=== PATIENT | female | born 1990 | race Caucasian/White ===

== ENCOUNTER 2021-04-11 13:28 | Emergency (ER) | payer OTHER, SELFPAY ==
--- NOTE | ~2021-04-11 | XR_ITS ---
EXAMINATION: XR CHEST CLINICAL INFORMATION: Cough with positive COMPARISON: None TECHNIQUE: Frontal view of the chest was obtained. FINDINGS: There is a region of airspace disease seen within the left lower lung. No pneumothorax or significant pleural effusion appreciated. Heart normal size. No evidence of pulmonary edema. XR/XR chest 1V IMPRESSION: Left lower lung disease.
[2021-04-11 13:55] VITALS: BP 97/72; PULSE 130; RESP 20; TEMP 37.5; O2SAT 97; BMI 24.7
[2021-04-11 14:00] VITALS: PULSE 112
--- NOTE | 2021-04-11 14:38 | ED.GENADULT ---
HPI - General Adult General Chief complaint: Dyspnea Stated complaint: pt tested positive for covid, difficulty breathing Time Seen by Provider: 04/11/21 14:29 Related Data Allergies Allergy/AdvReac Type Severity Reaction Status Date / Time ibuprofen [From ADVIL] Allergy Unknown SWELLING Verified 04/11/21 13:55 OF EYES PMFSH Social History Social History Advance Directives: Yes Advance Directives Information Provided: Yes Advance Directives on File: No Patient : No Physical Exam Vital Signs: Vital Signs: Last Vital Signs Temp 99.5 F 04/11/21 13:55 Pulse 112 H 04/11/21 14:00 Resp 20 04/11/21 13:55 BP 97/72 04/11/21 13:55 Pulse Ox 97 04/11/21 13:55 Body Mass Index 24.7 Course Course Course Narrative: Patient tested positive fof covid 19 presents to the ED for worsening cough and bodyaches. patient denies any pleuretic chest pain. Patient will order chest xray. Patient is not hypoxic. Patient tachcyardia improved from 130 to 112. patient has low grade fever of 99.5 Discharge Plan Discharge Clinical Impression: COVID-19 Patient Disposition: Home, Self-Care Instructions: COVID-19 (Coronavirus Disease 2019) (ED) Additional Instructions: Strict home quarantine until all symptoms has resolved. Onset of symptoms greater than 7 days. No fever for at least 2 days. Referrals: Physician,Unknown [Primary Care Provider] - 2 days Interventions: ED Discharge Assessment Last Done: 04/11/21 15:57 Discharge Date/Time: 04/11/21 15:58
--- NOTE | 2021-04-11 15:24 | ED.SOB ---
HPI - SOB/Dyspnea General Chief Complaint: Dyspnea Stated Complaint: pt tested positive for covid, difficulty breathing Time Seen by Provider: 04/11/21 14:29 History of Present Illness HPI Narrative: Patient is a 30-year-old female presents today with having coughing upper respiratory symptoms that is been ongoing for last 4 days. Positive generalized malaise weakness coughing. Cough nonproductive in nature. Patient's also have similar symptoms. 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 No nausea no vomiting. No change in smell or taste. Related Data Allergies Allergy/AdvReac Type Severity Reaction Status Date / Time ibuprofen [From ADVIL] Allergy Unknown SWELLING Verified 04/11/21 13:55 OF EYES Review of Systems Review of Systems: Positive coughing positive upper respiratory symptoms positive generalized malaise positive diffuse body ache Yes all other systems are reviewed and are negative FOR[facility]LY [facility] Past Medical History Attestation statement: The following information was validated with the patient. Social History Social History Advance Directives: Yes Advance Directives Information Provided: Yes Advance Directives on File: No Patient : No Physical Exam Vital Signs: Vital Signs: Last Vital Signs Temp 99.5 F 04/11/21 13:55 Pulse 112 H 04/11/21 14:00 Resp 20 04/11/21 13:55 BP 97/72 04/11/21 13:55 Pulse Ox 97 04/11/21 13:55 Body Mass Index 24.7 Appearance: Alert. Oriented X3. No acute distress. Eyes: Pupils equal, round and reactive to light. ENT: Pharynx normal. Neck: Normal inspection. Neck supple. No lymph nodes noted. No crepitus CVS: Normal heart rate and rhythm. Pulses normal. Normal S1 and S2 Respiratory: No respiratory distress. Breath sounds normal. No Wheezing. No rales Abdomen: Soft and nontender. No rigidity. No distention. good BS x4 Skin: Skin warm and dry. Normal skin color. Normal skin turgor. Extremities: No lower extremity edema. Neurovascular intact to all extremities. No Lacerations. No Rash Neuro: Oriented X 3. No motor deficit. No sensory deficit. Moving all extermities. No slurred speech MDM - SOB/Dyspnea MDM Narrative Medical decision making narrative: Tested positive for coronavirus. Positive coughing upper respiratory symptoms. O2 sats 98% on room air. X-ray positive for infiltrate consistent with having COVID. Will discharge patient home conservative management. Patient is 22 years old no history of diabetes for morning. In stable condition to Discharge Plan Discharge Clinical Impression: COVID-19 Patient Disposition: Home, Self-Care Instructions: COVID-19 (Coronavirus Disease 2019) (ED) Additional Instructions: Strict home quarantine until all symptoms has resolved. Onset of symptoms greater than 7 days. No fever for at least 2 days. Referrals: Physician,Unknown [Primary Care Provider] - 2 days
[2021-04-11] MEDS: Acetaminophen 325 MG TABLET 650 MG PO (15:57)
== END 2021-04-11 15:58 | disposition home or self-care (01) ==
PROVIDERS: Emergency Provider Emergency Medicine Emergency Medical Services
DX: U07.1 COVID-19 (principal); R06.00 Dyspnea, unspecified
CPT/HCPCS: 71045; 99283